=== PATIENT | female | born 1945 | race Caucasian/White ===

== ENCOUNTER 2020-03-18 12:32 | Emergency (ER) | payer MEDICARE, BC ==
--- NOTE | 2020-03-18 13:27 | RAD ---
Exam: XR Knee Lt 4 View STANDARD HISTORY: Left knee swelling after a fall. COMPARISON: 09/20/2006 FINDINGS: Again noted are postoperative changes related to left total knee prosthesis. No hardware complication is seen. No fracture or dislocation is identified. There is prominent subcutaneous soft tissue swelling involving the anterior and lateral aspect of the knee. IMPRESSION: 1. No acute osseous abnormality. 2. Right total knee prosthesis. 3. Prominent subcutaneous soft tissue swelling anterior to the knee as well as anterior to the proxim al tibia as well as subcutaneous edema seen laterally and anterolaterally. Findings at the lateral aspect of the left knee could be related to combination of subcutaneous soft tissue swelling and subc utaneous hematoma.
--- NOTE | 2020-03-18 13:42 | RAD ---
LEFT LEG 2 VIEWS: Date: 03/18/2020 HISTORY: Fall. Left leg pain. FINDINGS/IMPRESSION: The left tibia and fibula are intact. There are changes of total knee arthroplasty in good position a nd alignment. POS: [facility]
== END 2020-03-18 14:15 | disposition home or self-care (01) ==
LOC: MADERS 12:32
DX: S80.02XA Contusion of left knee, initial encounter (principal); I10 Essential (primary) hypertension; Z79.899 Other long term (current) drug therapy; W19.XXXA Unspecified fall, initial encounter; Y92.096 Garden or yard of other non-institutional residence as the place of occurrence of the external cause

== ENCOUNTER 2020-07-26 12:43 | Outpatient (CLI) | payer MEDICARE, BC ==
[2020-07-26] MEDS ORDERED: Iopamidol 370 76% 100 ML VIAL IV ONE (12:44)
== END 2020-07-26 12:44 | disposition home or self-care (01) ==
LOC: MADLAB 12:43
PROVIDERS: ATTEND Family Medicine
DX: K57.92 Diverticulitis of intestine, part unspecified, without perforation or abscess without bleeding (principal); D25.9 Leiomyoma of uterus, unspecified; K80.20 Calculus of gallbladder without cholecystitis without obstruction; N28.1 Cyst of kidney, acquired; K76.9 Liver disease, unspecified
CPT/HCPCS: 74177; Q9967

== ENCOUNTER 2020-07-28 20:08 | Emergency (ER) | payer MEDICARE, BC ==
[~2020-07-28 20:08] MED LIST: Sodium Chloride 0.9% 1,000 ML BAG ONE; Sodium Chloride 0.9% 100 ML BAG ONE
[2020-07-28 20:46] LABS: Hemoglobin 10.5 g/dL (12.0-16.0); Mean Corpuscular HGB CONC 32.1 g/dL (32.0-36.0); Mean Corpuscular Hemoglobin 28.1 pg (27.0-31.0); Mean Corpuscular Volume 87.6 fL (78.0-98.0); Mean Platelet Volume 8.7 fL (7.4-10.4); Platelet Count 328 thou/uL (130-400); RBC Distribution Width 13.3 % (11.5-14.5); Red Blood Cell (RBC) Count 3.72 mill/uL (4.20-5.40); White Blood Cell (WBC) Count 21.5 thou/uL (4.8-10.8)
[2020-07-28] MEDS ORDERED: Ondansetron PF 4 MG/2 ML Vial ONE (20:48)
[2020-07-28] MEDS ORDERED: Ketorolac Tromethamine 30 MG/ML VIAL ONE (20:48)
[2020-07-28 20:54] LABS: Eosinophils 1 % (0-10); Lymphocytes 4 % (21-51); MDiff Complete? YES; Monocytes 6 % (0-10); Neutrophil 89 % (42-75); Platelet Morphology Comment Appears Adequate; RBC Morphology Normal
[2020-07-28] MEDS ORDERED: Piperacillin/Tazobactam 3.375 GM VIAL ONE (20:57)
[2020-07-28 21:00] LABS: ALT (SGPT) 30 U/L (8-55); AST (SGOT) 16 U/L (5-34); Albumin 3.3 g/dL (3.4-4.8); Alkaline Phosphatase 110 U/L (40-110); Anion Gap 16 mmol/L (10-20); BUN (Urea Nitrogen) 8 mg/dL (9.8-20.1); Bilirubin, Total 0.6 mg/dL (0.2-1.2); Calc. Creatinine Clearance 0 mL/min (70-130); Calcium 8.8 mg/dL (7.8-10.44); Carbon Dioxide 22 mmol/L (23-31); Chloride 87 mmol/L (98-107); Globulin 3.7 g/dL (2.4-3.5); Glucose 97 mg/dL (83-110); Lipase 54 U/L (8-78); Potassium 3.4 mmol/L (3.5-5.1); Sodium 122 mmol/L (136-145)
== END 2020-07-28 23:24 | disposition short-term general hospital (02) ==
LOC: MADERS 20:08
DX: K57.20 Diverticulitis of large intestine with perforation and abscess without bleeding (principal); E87.1 Hypo-osmolality and hyponatremia; I10 Essential (primary) hypertension; Z79.899 Other long term (current) drug therapy
CPT/HCPCS: 36415; 80053; 83690; 85025; 96374; 96375; J1885; J2405; J2543; J3490; J7050

== ENCOUNTER 2021-01-19 09:15 | Outpatient (CLI) | payer MEDICARE, BC ==
[2021-01-19 09:46] LABS: Anion Gap 14 mmol/L (10-20); BUN (Urea Nitrogen) 22 mg/dL (9.8-20.1); Calc. Creatinine Clearance 0 mL/min (70-130); Calcium 9.4 mg/dL (7.8-10.44); Carbon Dioxide 19 mmol/L (23-31); Chloride 106 mmol/L (98-107); Glucose 82 mg/dL (83-110); Potassium 4.5 mmol/L (3.5-5.1); Sodium 134 mmol/L (136-145)
== END 2021-01-19 09:16 | disposition home or self-care (01) ==
LOC: MADLAB 09:15
PROVIDERS: ATTEND Specialist
DX: N17.9 Acute kidney failure, unspecified (principal)
CPT/HCPCS: 36415; 80048

== ENCOUNTER 2021-06-30 18:06 | Emergency (ER) | payer MEDICARE, BC ==
[2021-06-30] MEDS ORDERED: Lidocaine 1%/Epinephrine 1:100K 10 ML VIAL ONE (18:39)
[2021-06-30] MEDS ORDERED: Bacitracin 1 PK ONE (18:42)
== END 2021-06-30 22:00 | disposition home or self-care (01) ==
LOC: MADERS 18:06
DX: S81.812A Laceration without foreign body, left lower leg, initial encounter (principal); I10 Essential (primary) hypertension; W20.8XXA Other cause of strike by thrown, projected or falling object, initial encounter
CPT/HCPCS: 12002

== ENCOUNTER 2021-08-09 07:24 | Outpatient (CLI) | payer MEDICARE, BC ==
[2021-08-09 08:08] LABS: Anion Gap 17 mmol/L (10-20); BUN (Urea Nitrogen) 27 mg/dL (9.8-20.1); Calc. Creatinine Clearance 0 mL/min (70-130); Calcium 9.5 mg/dL (7.8-10.44); Carbon Dioxide 22 mmol/L (23-31); Chloride 106 mmol/L (98-107); Glucose 100 mg/dL (83-110); Phosphorus 3.9 mg/dL (2.3-4.7); Potassium 4.2 mmol/L (3.5-5.1); Sodium 141 mmol/L (136-145)
== END 2021-08-09 07:25 | disposition home or self-care (01) ==
LOC: MADLAB 07:24
PROVIDERS: ATTEND Anesthesiology Pain Medicine
DX: N18.30 Chronic kidney disease, stage 3 unspecified (principal); R80.9 Proteinuria, unspecified
CPT/HCPCS: 36415; 80048; 82306; 83970; 84100

== ENCOUNTER 2021-08-12 09:12 | Outpatient (CLI) | payer MEDICARE, BC | END 2021-08-12 09:13 | disposition home or self-care (01) | LOC: MADULT 09:12 | PROVIDERS: ATTEND Internal Medicine Nephrology | DX: N18.30 Chronic kidney disease, stage 3 unspecified (principal) | CPT/HCPCS: 76770 ==

== ENCOUNTER 2022-01-11 13:10 | Emergency (ER) | payer MEDICARE, BC ==
[2022-01-11] MEDS ORDERED: Morphine 4 MG/ML VIAL ONE (13:29)
[2022-01-11 13:55] LABS: #Basophils 0.1 thou/uL (0.0-0.2); #Eosinphils 0.1 thou/uL (0.0-0.7); #Lymphocytes 1.5 thou/uL (1.20-3.40); #Monocytes 0.5 thou/uL (0.11-0.59); #Neutrophils 5.8 thou/uL (1.40-6.50); %Basophils 0.8 % (0.0-1.0); %Eosinophils 1.7 % (0.0-10.0); %Lymphocytes 18.4 % (21.0-51.0); %Monocytes 5.8 % (0.0-10.0); %Neutrophils 73.3 % (42.0-75.0); Hemoglobin 12.2 g/dL (12.0-16.0); Mean Corpuscular Hemoglobin 31.3 pg (27.0-31.0); Mean Corpuscular Volume 92.2 fl (78.0-98.0); Mean Platelet Volume 8.8 fL (7.4-10.4); Platelet Count 187 10x3/uL (130-400); White Blood Cell (WBC) Count 7.9 10x3/uL (4.8-10.8)
[2022-01-11 14:15] LABS: ALT (SGPT) 17 U/L (8-55); AST (SGOT) 19 U/L (5-34); Albumin 4.1 g/dL (3.4-4.8); Alkaline Phosphatase 67 U/L (40-110); Anion Gap 15 mmol/L (10-20); BUN (Urea Nitrogen) 22 mg/dL (9.8-20.1); Bilirubin, Total 0.8 mg/dL (0.2-1.2); CK (CPK) 95 U/L (29-168); Calc. Creatinine Clearance 0 mL/min (70-130); Calcium 9.2 mg/dL (7.8-10.44); Carbon Dioxide 21 mmol/L (23-31); Chloride 106 mmol/L (98-107); Estimated GFR 31; Globulin 3.3 g/dL (2.4-3.5); Glucose 99 mg/dL (83-110); Lipase 53 U/L (8-78); Magnesium 2.2 mg/dL (1.6-2.6); Potassium 3.9 mmol/L (3.5-5.1); Protein, Total 7.4 g/dL (5.8-8.1); Sodium 138 mmol/L (136-145)
[2022-01-11 14:16] LABS: CKMB 1.9 ng/mL (0-6.6)
== END 2022-01-11 15:02 | disposition home or self-care (01) ==
LOC: MADERS 13:10
DX: S20.219A Contusion of unspecified front wall of thorax, initial encounter (principal); V89.2XXA Person injured in unspecified motor-vehicle accident, traffic, initial encounter
CPT/HCPCS: 36415; 71250; 80053; 82550; 82553; 83690; 83735; 83880; 84484; 85025; 93005; 96374; J2270